=== PATIENT | female | born 1950 | race Caucasian/White ===

== ENCOUNTER 2016-12-01 10:37 | Outpatient (CLI) | payer MEDICARE | END 2016-12-01 10:38 | disposition home or self-care (01) | LOC: LAB 10:37 | PROVIDERS: ATTEND Physician Assistant Medical | DX: F41.8 Other specified anxiety disorders (principal); F98.8 Other specified behavioral and emotional disorders with onset usually occurring in childhood and adolescence ==

== ENCOUNTER 2016-12-01 10:45 | Outpatient (CLI) | payer MEDICARE ==
[2016-12-01 11:23] LABS: BASOPHILS % (AUTO) 0.6 %; EOSINOPHILS # (AUTO) 0.2 10^3/uL (0.0-0.7); EOSINOPHILS % (AUTO) 3.5 %; HCT - HEMATOCRIT 37.4 % (37.0-47.0); HGB - HEMOGLOBIN 12.4 g/dL (12.0-16.0); LYMPHOCYTES # (AUTO) 1.3 10^3/uL (1.5-3.5); LYMPHOCYTES % (AUTO) 28.9 %; MEAN CORPUSCULAR HEMOGLOBIN 29.1 pg (27.0-31.0); MEAN CORPUSCULAR HGB CONC 33.1 g/dL (32.0-36.0); MEAN PLATELET VOLUME 7.6 fL (7.9-10.8); MONOCYTES # (AUTO) 0.2 10^3/uL (0.0-1.0); MONOCYTES % (AUTO) 5.5 %; NEUTROPHILS # (AUTO) 2.8 10^3/uL (1.5-6.6); NEUTROPHILS % (AUTO) 61.5 %; RED BLOOD COUNT 4.25 10^6/uL (4.20-5.40); RED CELL DISTRIBUTION WIDTH 13.5 % (12.0-15.0); UNCORRECTED WHITE BLOOD COUNT 4.5 x10^3/uL; WHITE BLOOD COUNT 4.5 x10^3/uL (4.8-10.8)
[2016-12-01 11:33] LABS: ALBUMIN/GLOBULIN RATIO 1.3 (1.0-2.2); BILIRUBIN,TOTAL 0.6 mg/dL (0.2-1.0); CALCIUM 9.3 mg/dL (8.5-10.3); CREATININE 0.9 mg/dL (0.4-1.0)
== END 2016-12-01 10:46 | disposition home or self-care (01) ==
LOC: LAB 10:45
PROVIDERS: ATTEND Physician Assistant Medical
DX: F41.8 Other specified anxiety disorders (principal); F98.8 Other specified behavioral and emotional disorders with onset usually occurring in childhood and adolescence; Z79.899 Other long term (current) drug therapy
CPT/HCPCS: 36415; 80053; 84443; 85025

== ENCOUNTER 2017-01-14 09:08 | Outpatient (CLI) | payer MEDICARE ==
--- NOTE | 2017-01-17 16:58 | Mammography Report ---
DIGITAL SCREENING MAMMOGRAM: 01/14/2017 CLINICAL INDICATION: A 66-year-old nulliparous patient with personal history of left breast cancer, s tatus post lumpectomy and chemoradiation, family history of breast cancer. COMPARISON: 11/2015, 11/2013, 07/2011, 10/2007. TECHNIQUE: Routine CC and MLO projections were obtained of the breasts. FINDINGS: The breasts demonstrate scattered fibroglandular densities bilaterally. Postoperative and posttreatment changes in the left breast are stable. Coarse, typically benign calcifications are pres ent. No suspicious masses, clustered microcalcifications, or regions of architectural distortion are identified. IMPRESSION: BENIGN FINDINGS. RECOMMENDATION: ROUTINE ANNUAL SCREENING UNLESS OTHERWISE CLINICALLY INDICATED. BIRADS CATEGORY 2-BENIGN FINDINGS. STANDARD QUALIFYING STATEMENTS 1. This examination was reviewed with the aid of Computer-Aided Detection (CAD). 2. A negative or benign imaging report should not delay biopsy if clinically suspicious findings are present. Consider surgical consultation if warranted. More than 5% of cancers are not identified by i maging. 3. Dense breasts may obscure an underlying neoplasm. JOB #: [id number] EXT JOB #:[id number]
== END 2017-01-14 09:09 | disposition home or self-care (01) ==
LOC: DI 09:08
PROVIDERS: ATTEND Physician Assistant Medical
DX: Z12.31 Encounter for screening mammogram for malignant neoplasm of breast (principal); Z80.3 Family history of malignant neoplasm of breast
CPT/HCPCS: 77067

== ENCOUNTER 2018-01-30 08:28 | Outpatient (CLI) | payer MEDICARE ==
[2018-01-30 08:53] LABS: BASOPHILS % (AUTO) 0.7 %; EOSINOPHILS # (AUTO) 0.2 10^3/uL (0.0-0.7); EOSINOPHILS % (AUTO) 5.2 %; HGB - HEMOGLOBIN 13.8 g/dL (12.0-16.0); LYMPHOCYTES # (AUTO) 1.5 10^3/uL (1.5-3.5); LYMPHOCYTES % (AUTO) 38.1 %; MEAN CORPUSCULAR HEMOGLOBIN 29.3 pg (27.0-31.0); MEAN CORPUSCULAR HGB CONC 33.4 g/dL (32.0-36.0); MONOCYTES # (AUTO) 0.3 10^3/uL (0.0-1.0); MONOCYTES % (AUTO) 7.7 %; NEUTROPHILS # (AUTO) 1.9 10^3/uL (1.5-6.6); NEUTROPHILS % (AUTO) 48.3 %; PLT - PLATELET COUNT 320 10^3/uL (130-450); RED CELL DISTRIBUTION WIDTH 13.5 % (12.0-15.0); WHITE BLOOD COUNT 3.9 x10^3/uL (4.8-10.8)
[2018-01-30 09:01] LABS: ALBUMIN 3.8 g/dL (3.2-5.5); ALBUMIN/GLOBULIN RATIO 1.1 (1.0-2.2); ALKALINE PHOSPHATASE 66 IU/L (42-121); ALT ALANINE AMINOTRANSFERASE 20 IU/L (10-60); AST ASPARTATE AMINOTRANSFERASE 21 IU/L (10-42); BUN - BLOOD UREA NITROGEN 33 mg/dL (6-20); CALCIUM 9.6 mg/dL (8.5-10.3); CARBON DIOXIDE - CO2 27 mmol/L (21-32); CHLORIDE 101 mmol/L (101-111); CHOL/HDL RATIO 3.3 (<4.4); CHOLESTEROL 274 mg/dL; GFR - MDRD 55 (>89); GLUCOSE 103 mg/dL (70-100); HDL CHOLESTEROL 82 mg/dL; LDL CHOLESTEROL,CALCULATED 176 mg/dL; LDL/HDL RATIO 2.1 (<4.4); SODIUM 135 mmol/L (135-145); TOTAL PROTEIN 7.4 g/dL (6.7-8.2); VLDL CHOLESTEROL 16 mg/dL
[2018-01-31 12:22] LABS: HEPATITIS C ANTIBODY NON-REACTIVE (NON-REACTIVE)
== END 2018-01-30 08:29 | disposition home or self-care (01) ==
LOC: LAB 08:28
PROVIDERS: ATTEND Physician Assistant Medical
DX: F41.8 Other specified anxiety disorders (principal); Z79.899 Other long term (current) drug therapy; Z11.59 Encounter for screening for other viral diseases
CPT/HCPCS: 36415; 80053; 80061; 83721; 84443; 85025; 86803

== ENCOUNTER 2018-02-02 08:10 | Outpatient (CLI) | payer MEDICARE, OTHER | END 2018-02-02 08:11 | disposition home or self-care (01) | LOC: LAB 08:10 | PROVIDERS: ATTEND Physician Assistant Medical | DX: F41.8 Other specified anxiety disorders (principal) | CPT/HCPCS: 36415; 82533 ==

== ENCOUNTER 2018-02-16 09:59 | Emergency (ER) | payer MEDICARE, OTHER ==
[2018-02-16] MEDS ORDERED: BUFFERED LIDOCAINE 10 ML SYRINGE SUBQ STA (11:15)
--- NOTE | 2018-02-16 12:59 | ED Physician Documentation ---
PD HPI LOWER EXT INJURY - Stated complaint Stated Complaint: R LEG LAC - Chief complaint Chief Complaint: Laceration - History obtained from History obtained from: Patient - History of Present Illness PD HPI LOW EXT INJURY LOCATION: Right, Lower leg Type of injury: Blunt / blow Where injury occurred: Street Timing - onset: Today Timing - duration: Minutes Timing - details: Abrupt onset, Still present Improved by: Rest, Immobilization Worsened by: Moving, Palpating Associated symptoms: No: Weakness, Numbness, Tingling, Swelling Contributing factors: No: Anticoagulated Similar symptoms before: Diagnosis (laceration) Recently seen: Not recently seen - Additional information Additional information: 67-year-old female was out side picking weeds when she ran her leg across the edge of the stump with a stick sticking out of it and lacerated her right lower calf. She is able to control her bleeding with direct pressure and comes in now for suturing. Review of Systems Constitutional: denies: Fever Throat: denies: Sore throat Respiratory: denies: Cough GI: denies: Vomiting Skin: reports: Laceration (s) Musculoskeletal: reports: Extremity pain. denies: Neck pain, Back pain Neurologic: denies: Generalized weakness, Focal weakness, Numbness PD PAST MEDICAL HISTORY - Past Medical History Past Medical History: Yes Cardiovascular: None Respiratory: None Endocrine/Autoimmune: None GI: None : Incontinence HEENT: None Psych: Anxiety Musculoskeletal: Chronic back pain Derm: None - Past Surgical History Past Surgical History: Yes General: Cholecystectomy Ortho: Other - Present Medications Home Medications: Ambulatory Orders Medication Instructions Recorded Confirmed Dextroamphetamine/Amphetamine 60 mg PO DAILY 02/11/14 11/24/16 [Adderall Xr 30 mg Capsule] Lactobacillus Acidophilus 1 each PO DAILY 11/24/16 11/24/16 [Probiotic Acidophilus] Multivitamin [Multivitamins] 1 each PO DAILY 11/24/16 11/24/16 busPIRone [Buspar] 7.5 mg PO BID 11/24/16 11/24/16 - Allergies Allergies/Adverse Reactions: Allergies Allergy/AdvReac Type Severity Reaction Status Date / Time No Known Drug Allergies Allergy Verified 02/16/18 10:08 - Social History Does the pt smoke?: No Smoking Status: Never smoker Does the pt drink ETOH?: No Does the pt have substance abuse?: No - Immunizations Immunizations are current?: Yes - POLST Patient has POLST: No PD ED PE NORMAL - Vitals Vital signs reviewed: Yes (normal ) - General General: Alert and oriented X 3, No acute distress, Well developed/nourished - HEENT HEENT: Atraumatic, PERRL, EOMI - Neck Neck: Supple, no meningeal sign - Respiratory Respiratory: No respiratory distress - Derm Derm: Normal color, Warm and dry, No rash - Extremities Extremities: No deformity, No edema, Other (There is a 5cm laceration to the right lower anterolateral calf. The distal n/v is intact, there is not fb in the wound and the wound does not involve deeper structures. 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, No motor deficit, No sensory deficit, Normal speech Eye Opening: Spontaneous Motor: Obeys Commands Verbal: Oriented GCS Score: 15 - Psych Psych: Normal mood, Normal affect Results - Vitals Vitals: Vital Signs - 24 hr 02/16/18 02/16/18 10:06 12:28 Temperature 36.8 C Heart Rate 83 64 Respiratory 16 17 Rate Blood Pressure 110/64 119/66 O2 Saturation 99 100 Oxygen O2 Source Room air Procedures - Laceration (location) right calf Length in cm: 4 Wound type: Linear, Clean Neurovascular status: Sensory intact, Motor intact, Vascular intact Tendon involvement: Tendon intact Anesthesia: Lidocaine 1%, With bicarb Wound Preparation: Hibiclens, Irrigated copiously NS, Wound explored, To the base Skin layer closure: Nylon, Interrupted, Size #-0 - enter number (4-0), Sutures - enter # (10) Other: Patient tolerated well, No complications, Neurovascular intact, Dressing applied, Tetanus UTD PD MEDICAL DECISION MAKING - ED course Complexity details: considered differential, d/w patient ED course: 67-year-old female with a 5 cm laceration to the right calf is sutured tolerates this well. - Sepsis Event Vital Signs: Vital Signs - 24 hr 02/16/18 02/16/18 10:06 12:28 Temperature 36.8 C Heart Rate 83 64 Respiratory 16 17 Rate Blood Pressure 110/64 119/66 O2 Saturation 99 100 Oxygen O2 Source Room air Departure - Departure Disposition: 01 Home, Self Care Clinical Impression: Laceration of calf Qualifiers: Encounter type: initial encounter Laterality: right Qualified Code(s): S81.811A - Laceration without foreign body, right lower leg, initial encounter Condition: Stable Instructions: ED Laceration Ext Sutr Stap Tape Follow-Up: Eze Fry MD [Primary Care Provider] - Comments: sutures will need to be removed in 10-14 days
[2018-02-16 13:14] VITALS: BP 118/74
== END 2018-02-16 13:20 | disposition home or self-care (01) ==
LOC: ED 09:59
DX: S81.811A Laceration without foreign body, right lower leg, initial encounter (principal); W22.8XXA Striking against or struck by other objects, initial encounter; Y93.H2 Activity, gardening and landscaping
CPT/HCPCS: 12002; 99282; 99283

== ENCOUNTER 2018-03-23 19:23 | Outpatient (CLI) | payer MEDICARE, OTHER ==
[2018-03-23 20:31] LABS: CALCIUM 9.1 mg/dL (8.5-10.3); CREATININE 1.1 mg/dL (0.4-1.0)
== END 2018-03-23 19:24 | disposition home or self-care (01) ==
LOC: LAB 19:23
PROVIDERS: ATTEND Physician Assistant Medical
DX: N18.9 Chronic kidney disease, unspecified (principal)
CPT/HCPCS: 36415; 80048

== ENCOUNTER 2018-03-29 10:33 | Outpatient (CLI) | payer MEDICARE, OTHER ==
[2018-03-29 12:22] LABS: BILIRUBIN,URINE NEGATIVE (NEGATIVE); GLUCOSE, URINE (UA) NEGATIVE (NEGATIVE); KETONES,URINE (UA) NEGATIVE (NEGATIVE); LEUKOCYTE ESTERASE, URINE NEGATIVE (NEGATIVE); NITRITE,URINE NEGATIVE (NEGATIVE); OCCULT BLOOD,URINE NEGATIVE (NEGATIVE); PROTEIN,URINE NEGATIVE (NEGATIVE); UROBILINOGEN,URINE 0.2 (NORMAL) E.U./dL (NORMAL)
[2018-03-29 12:23] LABS: CLARITY,URINE CLEAR (CLEAR)
== END 2018-03-29 10:34 | disposition home or self-care (01) ==
LOC: LAB.R 10:33
PROVIDERS: ATTEND Physician Assistant Medical
DX: N18.3 Chronic kidney disease, stage 3 (moderate) (principal); R32 Unspecified urinary incontinence
CPT/HCPCS: 81001; 81003; 87086

== ENCOUNTER 2018-07-15 11:23 | Outpatient (CLI) | payer MEDICARE, OTHER ==
--- NOTE | 2018-07-17 08:56 | Mammography Report ---
Reason: SCREENING MAMMO Procedure Date: 07/15/2018 Accession Number: [id number] / [id number] Procedure: [facility]AYES - Screening Mammo w/Juan Jose CPT Code: FULL RESULT: EXAM: Screening Mammo w/Juan Jose DATE: 07/15/2018 11:46 AM CLINICAL HISTORY: Screening encounter. History of nulliparity and left breast cancer in 1999 status post lumpectomy and chemoradiation. Family history of breast cancer in the mother, sister and an aunt. TECHNIQUE: Bilateral CC and MLO views were obtained. A left exaggerated cc view was obtained. COMPARISON: 01/14/2017 and 12/06/2013. FINDINGS: The breasts demonstrate scattered fibroglandular densities bilaterally. Postoperative and posttreatment changes in the left breast are stable. There are coarse typically benign calcifications. No suspicious masses, clustered microcalcifications, or regions of architectural distortion are identified. IMPRESSION: Benign findings RECOMMENDATION: Routine annual screening unless otherwise clinically indicated. BIRADS CATEGORY 2: Benign findings STANDARD QUALIFYING STATEMENTS: 1. This examination was not reviewed with the aid of Computer-Aided Detection (CAD). 2. A negative or benign imaging report should not preclude biopsy if clinically suspicious findings are present. 3. Dense breasts may obscure an underlying neoplasm. 4. This examination was reviewed with the aid of 3D breast imaging (tomosynthesis).
== END 2018-07-15 11:24 | disposition home or self-care (01) ==
LOC: DI 11:23
PROVIDERS: ATTEND Physician Assistant Medical
DX: Z12.31 Encounter for screening mammogram for malignant neoplasm of breast (principal); Z85.3 Personal history of malignant neoplasm of breast; Z80.3 Family history of malignant neoplasm of breast
CPT/HCPCS: 77063; 77067

== ENCOUNTER 2018-07-19 18:50 | Outpatient (CLI) | payer MEDICARE, OTHER ==
--- NOTE | 2018-07-20 11:01 | Ultrasound Report ---
Reason: CKD STAGE 3 Procedure Date: 07/19/2018 Accession Number: [id number] / [id number] Procedure: US - Retroperitoneal CPT Code: FULL RESULT: EXAM: RENAL ULTRASOUND EXAM DATE: 07/19/2018 07:20 PM. CLINICAL HISTORY: Chronic kidney disease stage 3. COMPARISON: None. TECHNIQUE: Real-time scanning was performed with static images obtained. FINDINGS: Right Kidney: 11.1 cm. Simple cysts, the larger of which measures up to 2.4 cm. Increased cortical echogenicity with no stones, contour-deforming masses, or hydronephrosis. Left Kidney: 10.9 cm. A 2 cm simple cyst is noted. Increased cortical echogenicity with no stones, contour-deforming masses, or hydronephrosis. Bladder: Bilateral jets seen. The prevoid bladder volume was 235 cc. The postvoid bladder volume was 19 cc. Other: None. IMPRESSION: Increased cortical echogenicity is compatible with medical renal disease. No obstruction. RADIA
== END 2018-07-19 18:51 | disposition home or self-care (01) ==
LOC: DI 18:50
PROVIDERS: ATTEND Physician Assistant Medical
DX: N18.3 Chronic kidney disease, stage 3 (moderate) (principal)
CPT/HCPCS: 76770

== ENCOUNTER 2018-08-09 13:25 | Outpatient (CLI) | payer MEDICARE, OTHER ==
[2018-08-09 13:46] LABS: HGB - HEMOGLOBIN 12.8 g/dL (12.0-16.0); MEAN CORPUSCULAR HEMOGLOBIN 29.2 pg (27.0-31.0); MEAN CORPUSCULAR HGB CONC 32.1 g/dL (32.0-36.0); MEAN CORPUSCULAR VOLUME 90.8 fL (81.0-99.0); RED BLOOD COUNT 4.4 10^6/uL (4.20-5.40); RED CELL DISTRIBUTION WIDTH 14.2 % (12.0-15.0); WHITE BLOOD COUNT 3.5 x10^3/uL (4.8-10.8)
[2018-08-09 14:18] LABS: CALCIUM 9.5 mg/dL (8.5-10.3); CREATININE 1.1 mg/dL (0.4-1.0)
[2018-08-09 14:21] LABS: CREATININE,URINE 144.4 mg/dL
== END 2018-08-09 13:26 | disposition home or self-care (01) ==
LOC: LAB 13:25
PROVIDERS: ATTEND Internal Medicine Nephrology
DX: N05.9 Unspecified nephritic syndrome with unspecified morphologic changes (principal); D70.9 Neutropenia, unspecified; D63.1 Anemia in chronic kidney disease; R80.9 Proteinuria, unspecified
CPT/HCPCS: 36415; 80048; 82570; 84156; 85027

== ENCOUNTER 2018-11-14 15:42 | Outpatient (CLI) | payer MEDICARE, OTHER ==
--- NOTE | 2018-11-15 09:08 | DEXA Report ---
Reason: POST MENOPAUSAL Procedure Date: 11/14/2018 Accession Number: [id number] / [id number] Procedure: DEX - Dexa Spine and/or Hip CPT Code: FULL RESULT: EXAM: Dexa Spine and/or Hip DATE: 11/14/2018 4:15 PM CLINICAL HISTORY: POST MENOPAUSAL TECHNIQUE: Dual energy x-ray absorptiometry (DXA) was performed on a [employer]. Regions measured are the AP Spine, femoral neck, and if needed forearm. COMPARISON: 12/24/2015. In accordance with the International Society for Clinical Densitometry (ISCD) guidelines, data from previous exams may be reanalyzed using current recommendations and techniques. This is done to allow a more accurate basis for comparison with the current study. FINDINGS: The data for the lumbar spine is as follows: BMD (g/cm/cm) T-SCORE Z-SCORE REGION L1 1.478 2.9 4.5 L2 1.696 4.1 5.8 L3 2.008 6.7 8.4 L4 1.970 6.4 8.1 TOTAL 1.794 5.1 6.8 NOTE: All evaluable vertebrae are used for classification The data for the hip is as follows: BMD (g/cm/cm) T-SCORE Z-SCORE REGION Neck 1.048 0.1 1.8 TOTAL 1.100 0.7 2.2 NOTE: The femoral neck or total proximal femur, whichever is lowest, is used for classification. DXA RESULTS SUMMARY: Spine SCAN DATE AGE BMD CHANGE VS CHANGE VS PREVIOUS PREVIOUS % 9/14/2018 [age] 1.794 -0.116* -6.1* 12/24/2015 65.3 1.910 * Denotes significant change at the 95% confidence level. Denotes dissimilar scan types or analysis methods. DXA RESULTS SUMMARY: Hip SCAN DATE AGE BMD CHANGE VS CHANGE VS PREVIOUS PREVIOUS % 11[age]14/2018 68.2 1.100 -0.039* -3.4* 12/24/2015 65.3 1.139 * Denotes significant change at the 95% confidence level. Denotes dissimilar scan types or analysis methods. IMPRESSION: THE WHO CLASSIFICATION BASED ON THE INTERNATIONAL REFERENCE STANDARD IS NORMAL. THE FRACTURE RISK IS NOT INCREASED. RECOMMENDATION: Patients with diagnosis of osteoporosis or osteopenia should have regular bone mineral density assessment. For those eligible for Medicare, routine testing is allowed once every 2 years. Testing frequency can be increased for patients who have rapidly progressing disease or for those who are receiving medical therapy to restore bone mass. COMMENT: World Health Organization (WHO) definitions for osteoporosis and osteopenia: NORMAL BMD: T-score at -1.0 or higher, fracture risk is low OSTEOPENIA BMD: T-score between -1.0 and -2.5, fracture risk is increased. OSTEOPOROSIS BMD: T-score at -2.5 or lower, fracture risk is high. National Osteoporosis Foundation recommends: 1. Obtain adequate dietary calcium (at least 1200 mg per day) and vitamin D (400-800 international units per day). 2. Participate, as appropriate, in regular weightbearing and muscle-strengthening exercise. 3. Avoid tobacco use and reduce alcohol and caffeine intake. 4. For more detailed information see the website at www.NOF.org.
== END 2018-11-14 15:43 | disposition home or self-care (01) ==
LOC: DI 15:42
PROVIDERS: ATTEND Nurse Practitioner
DX: Z78.0 Asymptomatic menopausal state (principal)
CPT/HCPCS: 77080

== ENCOUNTER 2018-11-20 14:48 | Emergency (ER) | payer MEDICARE, OTHER ==
[2018-11-20] MEDS ORDERED: TETANUS/DIPHTHERIA/PERTUSSIS 0.5 ML SYRINGE IM ONE (15:16)
[2018-11-20] MEDS ORDERED: LIDOCAINE 2%-EPI 1:100000 20 ML MDV SUBQ STA (15:56)
--- NOTE | 2018-11-20 15:57 | ED Physician Documentation ---
PD HPI LOWER EXT INJURY - Stated complaint Stated Complaint: L LEG LAC - Chief complaint Chief Complaint: Laceration - History obtained from History obtained from: Patient - History of Present Illness PD HPI LOW EXT INJURY LOCATION: Left, Lower leg Type of injury: Laceration Where injury occurred: Home Timing - onset: How many hours ago (1) Timing - duration: Hours (1) Timing - details: Abrupt onset Pain level max: 4 Pain level now: 4 Improved by: Rest Worsened by: Moving, Palpating Associated symptoms: No: Weakness, Numbness, Tingling, Swelling Recently seen: Not recently seen Review of Systems Constitutional: denies: Fever, Chills Skin: denies: Rash Musculoskeletal: denies: Neck pain, Back pain PD PAST MEDICAL HISTORY - Past Medical History Past Medical History: Yes Cardiovascular: None Respiratory: None Neuro: None Endocrine/Autoimmune: None GI: None 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: Breast cancer : Incontinence HEENT: None Psych: Anxiety Musculoskeletal: Chronic back pain Derm: None - Past Surgical History Past Surgical History: Yes General: Cholecystectomy Ortho: Shoulder arthroplasty, Other /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: Other - Present Medications Home Medications: Ambulatory Orders Medication Instructions Recorded Confirmed Dextroamphetamine/Amphetamine 60 mg PO DAILY 02/11/14 11/20/18 [Adderall Xr 30 mg Capsule] Multivitamin [Multivitamins] 1 each PO DAILY 11/24/16 11/20/18 busPIRone [Buspar] 7.5 mg PO BID 11/24/16 11/20/18 Cephalexin [Keflex] 500 mg PO Q6H #28 capsule 11/20/18 Escitalopram [Lexapro] 1 tab ORAL DAILY 11/20/18 11/20/18 - Allergies Allergies/Adverse Reactions: Allergies Allergy/AdvReac Type Severity Reaction Status Date / Time No Known Drug Allergies Allergy Verified 11/20/18 14:53 - Social History Does the pt smoke?: No Smoking Status: Never smoker Does the pt drink ETOH?: Yes ETOH Use: Wine Does the pt have substance abuse?: No - Immunizations Immunizations are current?: Yes Immunizations: TDAP current <10years - POLST Patient has POLST: No PD ED PE NORMAL - Vitals Vital signs reviewed: Yes - General General: Alert and oriented X 3, No acute distress - Derm Derm: Warm and dry - Extremities Extremities: Other (L leg lateral calf flap laceration.) - Neuro Neuro: Alert and oriented X 3 - Psych Psych: Normal mood, Normal affect Results - Vitals Vitals: Vital Signs - 24 hr 11/20/18 11/20/18 11/20/18 14:50 16:09 16:48 Temperature 36.6 C Heart Rate 88 89 Respiratory 14 18 Rate Blood Pressure 132/68 H 102/70 O2 Saturation 100 99 Oxygen O2 Source Room air Procedures - Laceration (location) L calf Length in cm: 8 Wound type: Curved (triangle), Flap Neurovascular status: Sensory intact, Motor intact, Vascular intact Anesthesia: Lidocaine 2% with epi Wound Preparation: Irrigated copiously NS, Wound explored, To the base Skin layer closure: Shaheed Other: Patient tolerated well, No complications, Neurovascular intact, Dressing applied, Tetanus booster given (tdap) Complexity: Simple PD MEDICAL DECISION MAKING - ED course Complexity details: considered differential, d/w patient ED course: Patient with a flap laceration of the left leg. Repaired with shaheed. Tolerated well. Closed well. Patient counseled this may require ongoing wound care due to the amount of undermining of the tissue. Will place on Keflex. Warnings of infection and instructions on wound care given at bedside. Also counseled on how to minimize scarring. Patient counseled regarding signs and symptoms for which I believe and urgent re-evaluation would be necessary. Patient with good understanding of and agreement to plan and is comfortable going home at this time This document was made in part using voice recognition software. While efforts are made to proofread this document, sound alike and grammatical errors may occur. Departure - Departure Disposition: 01 Home, Self Care Clinical Impression: Leg laceration Qualifiers: Encounter type: initial encounter Laterality: left Qualified Code(s): S81.812A - Laceration without foreign body, left lower leg, initial encounter Condition: Good Instructions: ED Laceration Ext Sutr Stap Tape Follow-Up: Christina Diehl ARNP, ANIMAL NUTRITIONIST-C [Primary Care Provider] - (in approx 14 days for staple removal) Prescriptions: Cephalexin [Keflex] 500 mg PO Q6H #28 capsule Comments: Take all antibiotics until gone. Return if you worsen. Return especially for redness, swelling or drainage from the wound. The shaheed should be removed in approximately 2 weeks with your doctor. These type of wounds may require wound care. Your doctor will make this decision. Discharge Date/Time: 11/20/18 16:48
[2018-11-20] MEDS ORDERED: BACITRACIN OINT TOP STA (16:26)
[2018-11-20] MEDS ORDERED: cephALEXin 250 MG CAPSULE PO STA (16:44)
[2018-11-20 16:49] VITALS: BP 102/70
== END 2018-11-20 16:48 | disposition home or self-care (01) ==
LOC: ED 14:48
DX: S81.812A Laceration without foreign body, left lower leg, initial encounter (principal); W26.8XXA Contact with other sharp object(s), not elsewhere classified, initial encounter; Y92.009 Unspecified place in unspecified non-institutional (private) residence as the place of occurrence of the external cause; Z23 Encounter for immunization
CPT/HCPCS: 12004; 90471; 90715; 99283; A9270

== ENCOUNTER 2018-11-23 10:49 | Emergency (ER) | payer MEDICARE, OTHER ==
[2018-11-23 10:58] VITALS: BP 116/64
--- NOTE | 2018-11-23 12:28 | XRAY Report ---
Reason: fall,pain Procedure Date: 11/23/2018 Accession Number: [id number] / [id number] Procedure: XR - Knee 4 View RT CPT Code: FULL RESULT: EXAM: RIGHT KNEE RADIOGRAPHY EXAM DATE: 11/23/2018 11:43 AM. CLINICAL HISTORY: Fall,pain. COMPARISON: None. TECHNIQUE: 4 views. FINDINGS: Bones: Normal. No fractures or bone lesions. Joints: Trace joint effusion. Soft Tissues: Prepatellar soft tissue swelling. IMPRESSION: 1. Prepatellar soft tissue swelling which can be seen in setting of hematoma and bursitis. 2. Trace joint effusion. 3. No fracture. RADIA
--- NOTE | 2018-11-23 12:33 | ED Physician Documentation ---
PD HPI LOWER EXT INJURY - Stated complaint Stated Complaint: RT KNEE INJ - Chief complaint Chief Complaint: Trauma Ext - History obtained from History obtained from: Patient - History of Present Illness PD HPI LOW EXT INJURY LOCATION: Right, Knee Type of injury: Fall Where injury occurred: Home Timing - onset: How many days ago (2) Worsened by: Moving, Palpating Associated symptoms: Swelling - Additional information Additional information: The patient is a 68-year-old female who fell 2 days ago in her yard, impacting her right knee on chipped gravel. She presents now because of increased swelling and pain at the right knee. She denies any other injuries. Tetanus status is up-to-date. 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 CLASSIFIER: Breast cancer : Incontinence HEENT: None Psych: Anxiety Musculoskeletal: Chronic back pain Derm: None - Past Surgical History Past Surgical History: Yes General: Cholecystectomy Ortho: Shoulder arthroplasty, Other /STAMP CLASSIFIER: Other - Present Medications Home Medications: Ambulatory Orders Medication Instructions Recorded Confirmed Dextroamphetamine/Amphetamine 60 mg PO DAILY 02/11/14 11/20/18 [Adderall Xr 30 mg Capsule] Multivitamin [Multivitamins] 1 each PO DAILY 11/24/16 11/20/18 busPIRone [Buspar] 7.5 mg PO BID 11/24/16 11/20/18 Cephalexin [Keflex] 500 mg PO Q6H #28 capsule 11/20/18 Escitalopram [Lexapro] 1 tab ORAL DAILY 11/20/18 11/20/18 - Allergies Allergies/Adverse Reactions: Allergies Allergy/AdvReac Type Severity Reaction Status Date / Time No Known Drug Allergies Allergy Verified 11/23/18 10:58 - Social History Does the pt smoke?: No Smoking Status: Never smoker Does the pt drink ETOH?: Yes Does the pt have substance abuse?: No - Immunizations Immunizations are current?: Yes Immunizations: TDAP current <10years - POLST Patient has POLST: No PD ED PE NORMAL - Vitals Vital signs reviewed: Yes (normal) - General General: Alert and oriented X 3, Well developed/nourished - HEENT HEENT: Atraumatic - Cardiac Cardiac: RRR - Respiratory Respiratory: No respiratory distress - Derm Derm: No rash - Extremities Extremities: No edema, No calf tenderness / cord, Other (There is prepatellar swelling of the right knee with associated abrasion and tenderness to palpation. There is no significant warmth or erythema. She can extend her knee fully, and can flex to 25 degrees, with flexion increasing her pain. There is no ligamentous instability there is no calf tenderness. Distal neurovascular is intact.) - Neuro Neuro: Alert and oriented X 3, No motor deficit, No sensory deficit Results - Vitals Vitals: Vital Signs - 24 hr 11/23/18 10:54 Temperature 36.2 C L Heart Rate 60 Respiratory 16 Rate Blood Pressure 116/64 O2 Saturation 100 Oxygen O2 Source Room air - Rads (name of study) right knee Radiology: Prelim report reviewed, EMP read contemporaneously, See rad report (Prepatellar soft tissue swelling which can be seen in setting of hematoma and bursitis. Trace joint effusion. No fracture.) PD MEDICAL DECISION MAKING - ED course Complexity details: reviewed results, re-evaluated patient, considered differential, d/w patient ED course: The patient's presentation is most consistent with contusion to the right knee with prepatellar soft tissue swelling. There is no evidence of fracture on radiographic imaging. There is no clinical or radiographic evidence of foreign body. Treatment in the emergency department included administration of acetaminophen 650 mg orally. I discussed with her the expected course of injury, symptomatic treatment and outpatient follow-up, as well as potentially worrisome signs or symptoms that should prompt reevaluation in the emergency department. Departure - Departure Disposition: 01 Home, Self Care Clinical Impression: Contusion of right knee Qualifiers: Encounter type: initial encounter Qualified Code(s): S80.01XA - Contusion of right knee, initial encounter Condition: Stable Instructions: ED Contusion Lower Ext, ED Effusion Knee Follow-Up: Christina Diehl ARNP, [employer]ACH[employer] P[employer]ER-C [Credentialed Staff Provider] - Comments: Keep your right leg elevated as much the time as possible. Apply ice pack intermittently for the next 3 days. You can use Tylenol as needed for pain. Follow-up with your primary physician within 2 days. Call to schedule appointment. Return to the emergency department if you develop increasing pain or swelling, any sign of infection, or otherwise worsening symptoms.
[2018-11-23] MEDS ORDERED: ACETAMINOPHEN 325 MG TABLET PO STA (12:41)
== END 2018-11-23 13:09 | disposition home or self-care (01) ==
LOC: ED 10:49
DX: S80.01XA Contusion of right knee, initial encounter (principal); S80.211A Abrasion, right knee, initial encounter; W18.30XA Fall on same level, unspecified, initial encounter; Y92.007 Garden or yard of unspecified non-institutional (private) residence as the place of occurrence of the external cause
CPT/HCPCS: 73564; 99282; 99283; A9270

== ENCOUNTER 2019-01-28 | Outpatient (CLI) | payer MEDICARE, OTHER | END 2019-01-28 18:08 | disposition home or self-care (01) ==

== ENCOUNTER 2019-02-01 08:00 | Outpatient (CLI) | payer MEDICARE, OTHER | END 2019-03-04 23:59 | disposition home or self-care (01) | LOC: LAB.R 08:00 | PROVIDERS: ATTEND Nurse Practitioner | DX: S81.819D Laceration without foreign body, unspecified lower leg, subsequent encounter (principal) | CPT/HCPCS: 87070; 87075; 87205 ==

== ENCOUNTER 2019-02-06 16:42 | Outpatient (CLI) | payer MEDICARE, OTHER | END 2019-02-06 16:43 | disposition home or self-care (01) | LOC: RT 16:42 | PROVIDERS: ATTEND Physician Assistant Surgical | DX: Z01.810 Encounter for preprocedural cardiovascular examination (principal); M19.012 Primary osteoarthritis, left shoulder; M25.512 Pain in left shoulder | CPT/HCPCS: 93005 ==

== ENCOUNTER 2020-03-31 09:50 | Outpatient (CLI) | payer MEDICARE, OTHER ==
[2020-03-31 10:27] LABS: BASOPHILS % (AUTO) 0.9 %; EOSINOPHILS # (AUTO) 0.2 10^3/uL (0.0-0.7); EOSINOPHILS % (AUTO) 5.3 %; HGB - HEMOGLOBIN 12.5 g/dL (12.0-16.0); LYMPHOCYTES # (AUTO) 1.5 10^3/uL (1.5-3.5); LYMPHOCYTES % (AUTO) 35.1 %; MEAN CORPUSCULAR HEMOGLOBIN 29.6 pg (27.0-31.0); MEAN CORPUSCULAR HGB CONC 32.1 g/dL (32.0-36.0); MEAN CORPUSCULAR VOLUME 92.2 fL (81.0-99.0); MEAN PLATELET VOLUME 9.3 fL (7.9-10.8); MONOCYTES # (AUTO) 0.4 10^3/uL (0.0-1.0); MONOCYTES % (AUTO) 8.6 %; NEUTROPHILS # (AUTO) 2.1 10^3/uL (1.5-6.6); NEUTROPHILS % (AUTO) 49.9 %; PLT - PLATELET COUNT 257 10^3/uL (130-450); RED BLOOD COUNT 4.23 10^6/uL (4.20-5.40); RED CELL DISTRIBUTION WIDTH 12.9 % (12.0-15.0); WHITE BLOOD COUNT 4.3 x10^3/uL (4.8-10.8)
[2020-03-31 11:36] LABS: % IRON SATURATION 18 % (20-50); ALBUMIN 3.8 g/dL (3.2-5.5); ALBUMIN/GLOBULIN RATIO 1.3 (1.0-2.2); ALKALINE PHOSPHATASE 68 IU/L (42-121); ALT ALANINE AMINOTRANSFERASE 30 IU/L (10-60); AST ASPARTATE AMINOTRANSFERASE 35 IU/L (10-42); BILIRUBIN,TOTAL 1.2 mg/dL (0.2-1.0); BUN - BLOOD UREA NITROGEN 34 mg/dL (6-20); CALCIUM 9.6 mg/dL (8.5-10.3); CARBON DIOXIDE - CO2 29 mmol/L (21-32); CHLORIDE 101 mmol/L (101-111); CHOL/HDL RATIO 2.5 (<4.4); CHOLESTEROL 199 mg/dL; CREATININE 0.8 mg/dL (0.4-1.0); GLUCOSE 94 mg/dL (70-100); HDL CHOLESTEROL 79 mg/dL; IRON 68 ug/dL (28-170); SODIUM 139 mmol/L (135-145); TOTAL IRON BINDING CAPACITY 379 ug/dL (250-450); TOTAL PROTEIN 6.7 g/dL (6.7-8.2); TRANSFERRIN 271 mg/dL (192-382)
== END 2020-03-31 09:51 | disposition home or self-care (01) ==
LOC: LAB 09:50
PROVIDERS: ATTEND Nurse Practitioner
DX: N18.30 Chronic kidney disease, stage 3 unspecified (principal); Z79.899 Other long term (current) drug therapy; E78.2 Mixed hyperlipidemia
CPT/HCPCS: 36415; 80053; 80061; 83540; 83721; 84443; 84466; 85025

== ENCOUNTER 2020-12-10 18:25 | Outpatient (CLI) | payer MEDICARE, OTHER ==
--- NOTE | 2020-12-11 08:36 | XRAY Report ---
PROCEDURE: Thoracic Spine 2 View INDICATIONS: SCOLISIS, BACK PAIN TECHNIQUE: 3 views of the thoracic spine were acquired. COMPARISON: None. FINDINGS: Bones: The thoracic spine has multilevel moderate to severe degenerative changes with loss of the di sc space, anterior and lateral syndesmophytes, and levoscoliosis of the lumbar spine. No vertebral tristan dy height loss. No fractures or dislocations. No suspicious bony lesions. 12 pairs of ribs are note d, and appear intact where visualized. Soft tissues: No paravertebral stripe thickening. IMPRESSION: 1. Multilevel moderate to severe spondylosis of the thoracic spine. 2. No acute abnormality. Reviewed by: Arnold Weiner on 12/11/2020 8:34 AM PDT Approved by: Arnold Weiner on 12/11/2020 8:34 AM PDT Station ID: [id number]
--- NOTE | 2020-12-11 08:40 | XRAY Report ---
PROCEDURE: Lumbar Spine 2 View INDICATIONS: SCOLIOSIS, BACK PAIN TECHNIQUE: 3 views of the lumbar spine were acquired. COMPARISON: None. FINDINGS: Bones: 5 [id number] vertebrae are present. The lumbar spine has leftward curvature with the ape x at L1 and a Lomas angle of 15 degrees consistent with levoscoliosis. Each level demonstrates loss of the joint space with endplate degenerative changes and anterior, posterior, and lateral osteophytes. No vertebral body compression fractures. No suspicious bony lesions. Soft tissues: Overlying bowel gas pattern is normal. No suspicious soft tissue calcifications. IMPRESSION: 1. Severe lumbar spondylosis. 2. Levoscoliosis of the lumbar spine. Reviewed by: Arnold Weiner on 12/11/2020 8:38 AM PDT Approved by: Arnold Weiner on 12/11/2020 8:38 AM PDT Station ID: [id number]
== END 2020-12-10 18:26 | disposition home or self-care (01) ==
LOC: DI 18:25
PROVIDERS: ATTEND Internal Medicine
DX: M47.814 Spondylosis without myelopathy or radiculopathy, thoracic region (principal); M47.816 Spondylosis without myelopathy or radiculopathy, lumbar region; M41.86 Other forms of scoliosis, lumbar region; R29.890 Loss of height

== ENCOUNTER 2021-03-09 11:49 | Outpatient (CLI) | payer MEDICARE, OTHER ==
--- NOTE | 2021-03-09 12:26 | XRAY Report ---
PROCEDURE: Finger(s) LT INDICATIONS: FINGER PAIN DISLOCATION W/SELF REDUCTION TECHNIQUE: AP hand, 3 views of the fifth finger(s) acquired. COMPARISON: None FINDINGS: Bones: No fractures or dislocations. No suspicious bony lesions. Soft tissues: No suspicious soft tissue calcifications. IMPRESSION: No visualized acute fracture or dislocation. However, occult injury cannot be excluded. Recommend cece rt interval imaging follow-up in 7-10 days as clinically indicated for additional evaluation. Reviewed by: Avelina Rodriguez MD on 03/09/2021 12:25 PM PDT Approved by: Avelina Rodriguez MD on 03/09/2021 12:25 PM PDT Station ID: [id number]
== END 2021-03-09 11:50 | disposition home or self-care (01) ==
LOC: DI 11:49
PROVIDERS: ATTEND Internal Medicine
DX: M79.645 Pain in left finger(s) (principal)

== ENCOUNTER 2021-06-16 11:57 | Outpatient (CLI) | payer MEDICARE, OTHER ==
[2021-06-16 17:25] LABS: % IRON SATURATION 12 % (20-50); ALBUMIN 3.7 g/dL (3.2-5.5); ALBUMIN/GLOBULIN RATIO 1.1 (1.0-2.2); ALKALINE PHOSPHATASE 94 IU/L (42-121); ALT ALANINE AMINOTRANSFERASE 18 IU/L (10-60); AST ASPARTATE AMINOTRANSFERASE 24 IU/L (10-42); BILIRUBIN,TOTAL 0.5 mg/dL (0.2-1.0); BUN - BLOOD UREA NITROGEN 36 mg/dL (6-20); CALCIUM 9.1 mg/dL (8.5-10.3); CARBON DIOXIDE - CO2 26 mmol/L (21-32); CHLORIDE 101 mmol/L (101-111); CHOL/HDL RATIO 2.6 (<4.4); CHOLESTEROL 256 mg/dL; CREATININE 0.7 mg/dL (0.4-1.0); GFR - MDRD 82 (>89); GLUCOSE 99 mg/dL (70-100); HDL CHOLESTEROL 100 mg/dL; IRON 56 ug/dL (28-170); POTASSIUM 4.3 mmol/L (3.5-5.0); SODIUM 137 mmol/L (135-145); TOTAL IRON BINDING CAPACITY 456 ug/dL (250-450); TRANSFERRIN 326 mg/dL (192-382); TRIGLYCERIDES 39 mg/dL
[2021-06-16 17:33] LABS: THYROID STIMULATING HORMONE 1.58 uIU/mL (0.34-5.60)
[2021-06-16 17:39] LABS: FERRITIN 74.7 ng/mL (11.0-306.8)
[2021-06-17 09:42] LABS: HEPATITIS C ANTIBODY NON-REACTIVE (NON-REACTIVE)
[2021-06-17 20:54] LABS: BASOPHILS # (AUTO) 0.1 10^3/uL (0.0-0.1); BASOPHILS % (AUTO) 1.1 %; EOSINOPHILS # (AUTO) 0.3 10^3/uL (0.0-0.7); HGB - HEMOGLOBIN 12.7 g/dL (12.0-16.0); LYMPHOCYTES # (AUTO) 1.4 10^3/uL (1.5-3.5); LYMPHOCYTES % (AUTO) 31.3 %; MEAN CORPUSCULAR HEMOGLOBIN 29.1 pg (27.0-31.0); MEAN CORPUSCULAR HGB CONC 31.8 g/dL (32.0-36.0); MEAN CORPUSCULAR VOLUME 91.7 fL (81.0-99.0); MEAN PLATELET VOLUME 9.9 fL (7.9-10.8); MONOCYTES # (AUTO) 0.4 10^3/uL (0.0-1.0); MONOCYTES % (AUTO) 9.1 %; NEUTROPHILS # (AUTO) 2.4 10^3/uL (1.5-6.6); NEUTROPHILS % (AUTO) 52.1 %; PLT - PLATELET COUNT 385 10^3/uL (130-450); RED BLOOD COUNT 4.36 10^6/uL (4.20-5.40); RED CELL DISTRIBUTION WIDTH 13.9 % (12.0-15.0); WHITE BLOOD COUNT 4.5 x10^3/uL (4.8-10.8)
== END 2021-06-16 23:59 | disposition home or self-care (01) ==
LOC: LAB.R 11:57
PROVIDERS: ATTEND Internal Medicine
DX: Z00.00 Encounter for general adult medical examination without abnormal findings (principal); C50.919 Malignant neoplasm of unspecified site of unspecified female breast; F90.0 Attention-deficit hyperactivity disorder, predominantly inattentive type; J30.2 Other seasonal allergic rhinitis; M41.9 Scoliosis, unspecified; M47.9 Spondylosis, unspecified; M54.6 Pain in thoracic spine; M79.646 Pain in unspecified finger(s); M79.89 Other specified soft tissue disorders; N18.9 Chronic kidney disease, unspecified; R29.890 Loss of height; R32 Unspecified urinary incontinence; R60.0 Localized edema
CPT/HCPCS: 80053; 80061; 82728; 83036; 83540; 83721; 84443; 84466; 85025; 86803

== ENCOUNTER 2021-07-22 12:49 | Outpatient (CLI) | payer MEDICARE, OTHER ==
--- NOTE | 2021-07-22 17:11 | DEXA Report ---
PROCEDURE: Dexa Spine and/or Hip INDICATIONS: POST MENOPAUSAL TECHNIQUE: Dual energy x-ray absorptiometry (DXA) was performed on a Swift Shift System. Regions measur ed are the AP Spine, femoral neck, and if needed forearm. COMPARISON: DEXA 11/14/2018 FINDINGS: Lumbar Spine: Bone Mineral Density 1.856 g/cm/cm,T score 5.6, compared to 5.1 Left Hip: Bone Mineral Density 1.126 g/cm/cm,T score 0.9, compared to 0.7 Left Femoral Neck: Bone Mineral Density 1.05 to g/cm/cm, T score 0.1, compared to 0.1 (T score greater or equal to -1.0: NORMAL) (T score from -1.1 to -2.4: OSTEOPENIA) (T score less than or equal to -2.5 to: OSTEOPOROSIS) Impression: Normal bone mineral density. Patients with diagnosis of osteoporosis or osteopenia should have regular bone mineral density assess ment. For those eligible for Medicare, routine testing is allowed once every 2 years. Testing frequ ency can be increased for patients who have rapidly progressing disease or for those who are receivin g medical therapy to restore bone mass. Reviewed by: Avelina Rodriguez MD on 07/22/2021 5:09 PM PST Approved by: Avelina Rodriguez MD on 07/22/2021 5:09 PM PST Station ID: [id number]
== END 2021-07-22 12:50 | disposition home or self-care (01) ==
LOC: DI 12:49
PROVIDERS: ATTEND Internal Medicine
DX: Z78.0 Asymptomatic menopausal state (principal)

== ENCOUNTER 2021-08-10 11:31 | Outpatient (CLI) | payer MEDICARE, OTHER ==
--- NOTE | 2021-08-10 14:52 | XRAY Report ---
PROCEDURE: Finger(s) LT INDICATIONS: Left fifth digit TECHNIQUE: AP hand, 2 views of the left fifth finger(s) acquired. COMPARISON: 03/09/2021 FINDINGS: Soft tissue swelling about the left fifth proximal interphalangeal joint with no evidence of fracture or dislocation. No significant degenerative changes. IMPRESSION: Soft tissue swelling about the left fifth proximal interphalangeal joint with no evidence of malalign ment or fracture. Reviewed by: Joshua Orozco MD on 08/10/2021 2:50 PM PST Approved by: Joshua Orozco MD on 08/10/2021 2:50 PM PST Station ID: [id number]
== END 2021-08-10 11:32 | disposition home or self-care (01) ==
LOC: DI.WOS 11:31
PROVIDERS: ATTEND Orthopaedic Surgery
DX: R93.6 Abnormal findings on diagnostic imaging of limbs (principal); R93.89 Abnormal findings on diagnostic imaging of other specified body structures

== ENCOUNTER 2021-11-23 13:28 | Outpatient (CLI) | payer MEDICARE, OTHER ==
[2021-11-23 14:26] LABS: BASOPHILS % (AUTO) 0.7 %; EOSINOPHILS # (AUTO) 0.3 10^3/uL (0.0-0.7); EOSINOPHILS % (AUTO) 6.3 %; HCT - HEMATOCRIT 36.9 % (37.0-47.0); HGB - HEMOGLOBIN 11.5 g/dL (12.0-16.0); LYMPHOCYTES # (AUTO) 1.5 10^3/uL (1.5-3.5); MEAN CORPUSCULAR HEMOGLOBIN 28.3 pg (27.0-31.0); MEAN CORPUSCULAR HGB CONC 31.2 g/dL (32.0-36.0); MEAN CORPUSCULAR VOLUME 90.7 fL (81.0-99.0); MEAN PLATELET VOLUME 9.2 fL (7.9-10.8); MONOCYTES # (AUTO) 0.4 10^3/uL (0.0-1.0); MONOCYTES % (AUTO) 7.4 %; NEUTROPHILS # (AUTO) 3.1 10^3/uL (1.5-6.6); NEUTROPHILS % (AUTO) 57.4 %; PLT - PLATELET COUNT 328 10^3/uL (130-450); RED BLOOD COUNT 4.07 10^6/uL (4.20-5.40); RED CELL DISTRIBUTION WIDTH 13.9 % (12.0-15.0); WHITE BLOOD COUNT 5.4 x10^3/uL (4.8-10.8)
[2021-11-23 14:32] LABS: CALCIUM 10.1 mg/dL (8.5-10.3); CREATININE 1.1 mg/dL (0.4-1.0); POTASSIUM 4.2 mmol/L (3.5-5.0)
[2021-11-23 14:39] LABS: BILIRUBIN,URINE NEGATIVE (NEGATIVE); GLUCOSE, URINE (UA) NEGATIVE (NEGATIVE); KETONES,URINE (UA) NEGATIVE (NEGATIVE); LEUKOCYTE ESTERASE, URINE NEGATIVE (NEGATIVE); NITRITE,URINE NEGATIVE (NEGATIVE); OCCULT BLOOD,URINE NEGATIVE (NEGATIVE); PH,URINE 5.5 PH (5.0-7.5); PROTEIN,URINE NEGATIVE (NEGATIVE); UROBILINOGEN,URINE 0.2 (NORMAL) E.U./dL (NORMAL)
[2021-11-23 14:41] LABS: CLARITY,URINE CLEAR (CLEAR)
[2021-11-23 20:29] LABS: ESTIMATED AVERAGE GLUCOSE 117 mg/dL (70-100); HEMOGLOBIN A1c% 5.7 % (4.27-6.07)
== END 2021-11-23 13:29 | disposition home or self-care (01) ==
LOC: LAB 13:28
PROVIDERS: ATTEND Orthopaedic Surgery
DX: Z01.812 Encounter for preprocedural laboratory examination (principal); R73.9 Hyperglycemia, unspecified; N39.0 Urinary tract infection, site not specified
CPT/HCPCS: 36415; 80048; 81001; 81003; 83036; 85025; 87086

== ENCOUNTER 2021-12-08 10:39 | Outpatient (CLI) | payer MEDICARE, OTHER ==
--- NOTE | 2021-12-09 12:14 | Mammography Report ---
BILATERAL DIGITAL SCREENING MAMMOGRAM 3D/2D: 12/08/2021 CLINICAL: Routine screening. Personal history of left breast cancer. Family history of breast cancer. Comparison is made to exams dated: 07/15/2018 mammogram, 01/14/2017 mammogram, 12/24/2015 mammogram, an d 12/06/2013 mammogram - [facility]. There are scattered fibroglandular elements in both breasts. There are benign calcifications in the left breast. There also are benign vascular calcifications in the right breast. Additionally, there are benign post operative findings in the left breast. No significant masses, calcifications, or other findings are seen in either breast. There has been no significant interval change. IMPRESSION: BENIGN There is no mammographic evidence of malignancy. A 1 year screening mammogram is recommended. This exam was interpreted at Station ID: [id number]. NOTE: For mammograms, a report in lay terms will be sent to the patient. Approximately 15% of breast malignancies will not be visualized mammographically. In the management of a palpable breast mass, a negative mammogram must not discourage biopsy of a clinically suspicious lesion. Electronically Signed By: Pardeep Ren M.D. [email or web address]:12/08/2021 13:19:02 ACR BI-RADS Category 2: Benign Finding(s) 3342F PARENCHYMAL PATTERN: (A) - The breast(s) demonstrate(s) scattered fibroglandular densities. BI-RADS CATEGORY: (2) - 2 RECOMMENDATION: (ANNUAL) - Recommend routine annual screening mammography. [id number] 1 year screening LATERALITY: (B)
== END 2021-12-08 10:40 | disposition home or self-care (01) ==
LOC: DI.N 10:39
PROVIDERS: ATTEND Internal Medicine
DX: Z12.31 Encounter for screening mammogram for malignant neoplasm of breast (principal); Z85.3 Personal history of malignant neoplasm of breast; Z80.3 Family history of malignant neoplasm of breast

== ENCOUNTER 2022-09-21 09:21 | Outpatient (CLI) | payer MEDICARE, OTHER ==
[2022-09-21 09:40] LABS: BASOPHILS # (AUTO) 0.1 10^3/uL (0.0-0.1); BASOPHILS % (AUTO) 0.8 %; EOSINOPHILS # (AUTO) 0.3 10^3/uL (0.0-0.7); EOSINOPHILS % (AUTO) 4.6 %; HCT - HEMATOCRIT 39.4 % (37.0-47.0); HGB - HEMOGLOBIN 12.3 g/dL (12.0-16.0); LYMPHOCYTES % (AUTO) 33.8 %; MEAN CORPUSCULAR HEMOGLOBIN 27.8 pg (27.0-31.0); MEAN CORPUSCULAR HGB CONC 31.2 g/dL (32.0-36.0); MEAN CORPUSCULAR VOLUME 88.9 fL (81.0-99.0); MEAN PLATELET VOLUME 9.3 fL (7.9-10.8); MONOCYTES # (AUTO) 0.4 10^3/uL (0.0-1.0); MONOCYTES % (AUTO) 6.3 %; NEUTROPHILS # (AUTO) 3.3 10^3/uL (1.5-6.6); NEUTROPHILS % (AUTO) 54.2 %; PLT - PLATELET COUNT 291 10^3/uL (130-450); RED BLOOD COUNT 4.43 10^6/uL (4.20-5.40); RED CELL DISTRIBUTION WIDTH 13.7 % (12.0-15.0)
[2022-09-21 09:49] LABS: BILIRUBIN,URINE NEGATIVE (NEGATIVE); GLUCOSE, URINE (UA) NEGATIVE (NEGATIVE); KETONES,URINE (UA) NEGATIVE (NEGATIVE); LEUKOCYTE ESTERASE, URINE NEGATIVE (NEGATIVE); NITRITE,URINE NEGATIVE (NEGATIVE); OCCULT BLOOD,URINE SMALL (NEGATIVE); PH,URINE 5.5 PH (5.0-7.5); PROTEIN,URINE NEGATIVE (NEGATIVE); UROBILINOGEN,URINE 0.2 (NORMAL) E.U./dL (NORMAL)
[2022-09-21 10:04] LABS: BACTERIA,URINE Rare /HPF (None Seen); CLARITY,URINE CLEAR (CLEAR); MUCUS,URINE Few Strands; RBC,URINE 0-5 /HPF (0-5); SQUAMOUS EPITHELIAL CELL,UR NONE SEEN (<= Few); WBC,URINE 0-3 /HPF (0-5)
[2022-09-21 10:06] LABS: ALBUMIN 3.5 g/dL (3.2-5.5); ALBUMIN/GLOBULIN RATIO 1.1 (1.0-2.2); ALKALINE PHOSPHATASE 72 IU/L (42-121); ALT ALANINE AMINOTRANSFERASE 20 IU/L (10-60); AST ASPARTATE AMINOTRANSFERASE 24 IU/L (10-42); BILIRUBIN,TOTAL 0.5 mg/dL (0.2-1.0); BUN - BLOOD UREA NITROGEN 25 mg/dL (6-20); CALCIUM 9.2 mg/dL (8.5-10.3); CARBON DIOXIDE - CO2 27 mmol/L (21-32); CHLORIDE 106 mmol/L (101-111); CHOL/HDL RATIO 3.2 (<4.4); CHOLESTEROL 236 mg/dL; CREATININE 0.8 mg/dL (0.4-1.0); GFR - MDRD 70 (>89); GLUCOSE 106 mg/dL (70-100); HDL CHOLESTEROL 74 mg/dL; LDL CHOLESTEROL,CALCULATED 142 mg/dL; LDL/HDL RATIO 1.9 (<4.4); POTASSIUM 4.2 mmol/L (3.5-5.0); SODIUM 138 mmol/L (135-145); TOTAL PROTEIN 6.7 g/dL (6.7-8.2); TRIGLYCERIDES 102 mg/dL; VLDL CHOLESTEROL 20 mg/dL
[2022-09-21 13:41] LABS: ESTIMATED AVERAGE GLUCOSE 120 mg/dL (70-100); HEMOGLOBIN A1c% 5.8 % (4.27-6.07)
== END 2022-09-21 09:22 | disposition home or self-care (01) ==
LOC: LAB 09:21
PROVIDERS: ATTEND Internal Medicine
DX: Z00.00 Encounter for general adult medical examination without abnormal findings (principal); F90.9 Attention-deficit hyperactivity disorder, unspecified type; C50.919 Malignant neoplasm of unspecified site of unspecified female breast; M19.90 Unspecified osteoarthritis, unspecified site; Z13.6 Encounter for screening for cardiovascular disorders; J30.2 Other seasonal allergic rhinitis; M35.00 Sjogren syndrome, unspecified; Z79.899 Other long term (current) drug therapy; R32 Unspecified urinary incontinence; H53.9 Unspecified visual disturbance; R73.9 Hyperglycemia, unspecified; N39.0 Urinary tract infection, site not specified
CPT/HCPCS: 36415; 80053; 80061; 81001; 83036; 83721; 84443; 85025; 87086

== ENCOUNTER 2023-05-04 08:53 | Outpatient (CLI) | payer MEDICARE, OTHER ==
[2023-05-04 09:09] LABS: BASOPHILS % (AUTO) 1.1 %; EOSINOPHILS # (AUTO) 0.2 10^3/uL (0.0-0.7); EOSINOPHILS % (AUTO) 6.5 %; HCT - HEMATOCRIT 38.6 % (37.0-47.0); HGB - HEMOGLOBIN 11.8 g/dL (12.0-16.0); LYMPHOCYTES # (AUTO) 1.2 10^3/uL (1.5-3.5); LYMPHOCYTES % (AUTO) 35.2 %; MEAN CORPUSCULAR HEMOGLOBIN 28.5 pg (27.0-31.0); MEAN CORPUSCULAR HGB CONC 30.6 g/dL (32.0-36.0); MEAN CORPUSCULAR VOLUME 93.2 fL (81.0-99.0); MEAN PLATELET VOLUME 9.6 fL (7.9-10.8); MONOCYTES # (AUTO) 0.5 10^3/uL (0.0-1.0); MONOCYTES % (AUTO) 13.4 %; NEUTROPHILS # (AUTO) 1.5 10^3/uL (1.5-6.6); NEUTROPHILS % (AUTO) 43.8 %; PLT - PLATELET COUNT 262 10^3/uL (130-450); RED BLOOD COUNT 4.14 10^6/uL (4.20-5.40); RED CELL DISTRIBUTION WIDTH 14.6 % (12.0-15.0); WHITE BLOOD COUNT 3.5 x10^3/uL (4.8-10.8)
[2023-05-04 09:25] LABS: CALCIUM 9.8 mg/dL (8.5-10.3); POTASSIUM 4.2 mmol/L (3.5-4.5)
[2023-05-04 10:40] LABS: ESTIMATED AVERAGE GLUCOSE 111 mg/dL (70-100); HEMOGLOBIN A1c% 5.5 % (4.27-6.07)
== END 2023-05-04 08:54 | disposition home or self-care (01) ==
LOC: LAB 08:53
PROVIDERS: ATTEND Internal Medicine
DX: D64.9 Anemia, unspecified (principal); R73.01 Impaired fasting glucose; L98.9 Disorder of the skin and subcutaneous tissue, unspecified; R32 Unspecified urinary incontinence
CPT/HCPCS: 36415; 80048; 83036; 85025

== ENCOUNTER 2024-02-01 12:46 | Outpatient (CLI) | payer MEDICARE, OTHER | END 2024-02-01 12:47 | disposition home or self-care (01) | LOC: DI 12:46 | PROVIDERS: ATTEND Internal Medicine | DX: I35.0 Nonrheumatic aortic (valve) stenosis (principal) | CPT/HCPCS: 93307 ==

== ENCOUNTER 2024-02-01 12:47 | Outpatient (CLI) | payer MEDICARE, OTHER ==
--- NOTE | 2024-02-02 07:55 | Mammography Report ---
BILATERAL DIGITAL SCREENING MAMMOGRAM 3D/2D: 02/01/2024 CLINICAL: Routine screening. Personal history of left breast cancer. Comparison is made to exams dated: 12/08/2021 mammogram and 07/15/2018 mammogram - [facility]. There are scattered areas of fibroglandular density in both breasts (category b / 25%-50% glandular t issue). There are benign calcifications in the left breast. There also are benign vascular calcifications in the right breast. Additionally, there are benign post operative findings in the left breast. No significant masses, calcifications, or other findings are seen in either breast. There has been no significant interval change. IMPRESSION: BENIGN There is no mammographic evidence of malignancy. A 1 year screening mammogram is recommended. This exam was interpreted at Station ID: [id number]. NOTE: For mammograms, a report in lay terms will be sent to the patient. Approximately 15% of breast malignancies will not be visualized mammographically. In the management of a palpable breast mass, a negative mammogram must not discourage biopsy of a clinically suspicious lesion. Electronically Signed By: Mannie [email or web address]:02/01/2024 14:55:02 letter sent: No_Letter ACR BI-RADS Category 2: Benign Finding(s) 3342F PARENCHYMAL PATTERN: (A) - The breast(s) demonstrate(s) scattered fibroglandular densities. BI-RADS CATEGORY: (2) - 2 RECOMMENDATION: (ANNUAL) - Recommend routine annual screening mammography. [id number] 1 year screening LATERALITY: (B)
== END 2024-02-01 12:48 | disposition home or self-care (01) ==
LOC: DI 12:47
PROVIDERS: ATTEND Internal Medicine
DX: Z12.31 Encounter for screening mammogram for malignant neoplasm of breast (principal); R92.323 Mammographic fibroglandular density, bilateral breasts; Z85.3 Personal history of malignant neoplasm of breast